=== PATIENT | female | born 1935 | race Two or more races ===

== ENCOUNTER 2020-11-20 10:40 | Emergency (ER) | payer OTHER ==
[~2020-11-20] VITALS: Ht 165.1 cm; Wt 68.0 kg
[2020-11-20] MEDS ORDERED: CARVEDILOL ER40 MG (11:33)
[2020-11-20] MEDS ORDERED: COZAAR50 MG PO (11:33)
[2020-11-20] MEDS ORDERED: NAXIUM (11:34)
[2020-11-20] MEDS ORDERED: HORIZANT300 MG (11:35)
[2020-11-20] MEDS ORDERED: MOMETASONE FURO15 G2 TOP (14:32)
[2020-11-20] MEDS ORDERED: CLARITIN10 M1 PO (14:32)
== END 2020-11-20 14:48 | disposition home or self-care (01) ==
LOC: ER 10:40
DX: R21 Rash and other nonspecific skin eruption (principal)

== ENCOUNTER 2021-05-16 10:53 | Emergency (ER) | payer OTHER ==
[~2021-05-16] VITALS: Ht 165.1 cm; Wt 69.4 kg
[~2021-05-16 10:53] MED LIST: CARVEDILOL ER40 MG; CLARITIN10 M1 PO; COZAAR50 MG PO; HORIZANT300 MG; MOMETASONE FURO15 G2 TOP; NAXIUM
== END 2021-05-16 12:53 | disposition home or self-care (01) ==
LOC: ER 10:53
DX: M54.59 Other low back pain (principal)

== ENCOUNTER 2022-09-25 17:38 | Emergency (ER) | payer OTHER ==
[~2022-09-25] VITALS: Ht 167.6 cm; Wt 68.0 kg
[2022-09-25] MEDS ORDERED: ADULT LOW DOSE81 M1 (17:50)
== END 2022-09-25 19:50 | disposition home or self-care (01) ==
LOC: ER 17:38
DX: S02.2XXA Fracture of nasal bones, initial encounter for closed fracture (principal); W18.39XA Other fall on same level, initial encounter; Y93.89 Activity, other specified; Y92.89 Other specified places as the place of occurrence of the external cause